=== PATIENT | male | born 1995 | race Caucasian/White ===

== ENCOUNTER 2018-05-29 15:08 | Outpatient (CLI) | payer OTHER ==
[~2018-05-29] VITALS: Ht 175.3 cm; Wt 114.0 kg
[2018-05-29] MEDS ORDERED: SINGULAIR 110 MG/TAB PO (15:30)
[2018-05-29] MEDS ORDERED: PROAIR HFA0.09 MG/AC IH (15:30)
[2018-05-29] MEDS ORDERED: QVAR REDIHALE10.6 GM IH (15:31)
[2018-05-29] MEDS ORDERED: SPIRIVA RE2.5 MCG/Ac IH (15:32)
[2018-05-29 15:36] VITALS: BP 126/70; PULSE 89; TEMP 98.1
== END 2018-05-29 16:35 | disposition home or self-care (01) ==
LOC: EUO 15:08 → EDSEX 15:08 → EUO 16:35
DX: J45.40 Moderate persistent asthma, uncomplicated (principal); Z79.899 Other long term (current) drug therapy

== ENCOUNTER 2018-07-05 13:03 | Outpatient (CLI) | payer OTHER ==
[~2018-07-05] VITALS: Ht 175.3 cm; Wt 116.7 kg
[~2018-07-05 13:03] MED LIST: PROAIR HFA0.09 MG/AC IH; QVAR REDIHALE10.6 GM IH; SINGULAIR 110 MG/TAB PO; SPIRIVA RE2.5 MCG/Ac IH
--- NOTE | 2018-07-05 13:30 | NUR ---
Per pt report he is moving back to [place] in july.Spoke with Maria Guadalupe Bautista at [facility] office to confirm.Per Lily she will touch base with pt and let us know.
[2018-07-05 13:31] VITALS: BP 119/79; PULSE 106; TEMP 97.7
== END 2018-07-05 13:32 | disposition home or self-care (01) ==
LOC: EUO 13:03
DX: J45.40 Moderate persistent asthma, uncomplicated (principal); Z79.899 Other long term (current) drug therapy